=== PATIENT | male | born 1940 | race Hispanic/Latino ===

== ENCOUNTER 2018-02-17 06:35 | Day surgery (SDC) | payer MEDICARE, OTHER ==
[~2018-02-17 06:35] MED LIST: ANCEF/STERILE WATER 2 GM/20 ML IV NR
--- NOTE | 2018-02-17 07:24 | Anesthesia Day of Surgery ---
Anesthesia Day of Surgery - Day of Surgery Patient Examined: Yes Patient H&P Reviewed: Yes Patient is NPO: Yes
[2018-02-17] MEDS ORDERED: NACL BACTERIOSTATIC INFILTRATI ONE (07:56)
[2018-02-17] MEDS ORDERED: VERSED IV NR (08:00)
[2018-02-17] MEDS ORDERED: LACTATED RINGERS 1,000 ML IV SCH (08:00)
[2018-02-17] MEDS ORDERED: NACL 0.9% 1000 ML 1,000 ML ONE (08:15)
[2018-02-17] MEDS ORDERED: NACL 0.9% 1000 ML 1,000 ML IV SCH (08:15)
--- NOTE | 2018-02-17 08:29 | Anesthesia Consultation ---
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
[2018-02-17] MEDS ORDERED: DIPRIVAN 10 MG/ML IV ONE (09:32)
[2018-02-17] MEDS ORDERED: SUBLIMAZE ONE (09:49)
[2018-02-17] MEDS ORDERED: ePHEDrine SULFATE ONE (09:57)
--- NOTE | 2018-02-17 10:14 | Short Stay Summary ---
Short Stay Documentation Date of service: 02/17/18 - History H&P: obtained from office - Allergies and Medications Current Medications: Allergies No Known Allergies Allergy (Verified 02/07/18 17:38) Home Medications Medication Instructions Recorded Confirmed Last Taken Type Carvedilol [Coreg] 6.25 mg PO BID 02/08/18 02/08/18 02/17/18 05:55 History Cholecalciferol (Vitamin D3) 5,000 unit PO QWEEK 02/08/18 02/08/18 02/13/18 History [Vitamin D3] Clopidogrel Bisulfate [Plavix] 75 mg PO DAILY 02/08/18 02/17/18 02/05/18 History Gabapentin [Neurontin] 300 mg PO TID 02/08/18 02/08/18 02/17/18 05:55 History Oxycodone HCl/Acetaminophen 1 each PO Q6HR PRN 02/08/18 02/08/18 02/17/18 05:55 History [Percocet 10/325 mg] Simvastatin [Zocor TAB] 20 mg PO QHS 02/08/18 02/08/18 02/16/18 History Tamsulosin [Flomax] 0.4 mg PO QDAY 02/08/18 02/08/18 02/16/18 History metFORMIN [Glucophage] 500 mg PO BID 02/08/18 02/08/18 02/16/18 History Active Medications Cefazolin Sodium (Ancef/Sterile Water 2 Gm/20 Ml) 2 gm IV PREOP NR Stop: 02/17/18 21:00 Hydromorphone HCl (Dilaudid) 0.5 mg IV Q10MIN PRN PRN Reason: Pain , Severe (7-10) Stop: 02/17/18 13:00 Sodium Chloride (Nacl 0.9% 1000 Ml) 1,000 mls @ 100 mls/hr IV DIRECT JOSEF Stop: 02/17/18 23:59 Midazolam HCl (Versed) 2 mg IV PREOP NR Stop: 02/17/18 23:59 - Brief post op/procedure progress note Date of procedure: 02/17/18 Pre-op diagnosis: left renal stone Post-op diagnosis: same Procedure: eswl Anesthesia: GETA Surgeon: MARYLOU LLAMAS Estimated blood loss: none Pathology: none Condition: stable - Hospital course Hospital course: strainer/post op info on chart/pain mgmt per Dr. Can - Disposition Condition at discharge: Stable Disposition: DC-01 TO HOME OR SELFCARE Short Stay Discharge Plan Follow up with: DARYN CAN MD [Primary Care Provider] - 7 Days
[2018-02-17] MEDS: DILAUDID IV PRN ×2 (10:24→10:34)
--- NOTE | 2018-02-17 10:48 | Operative Report ---
PREOPERATIVE DIAGNOSIS: Left renal stone, 8 mm. POSTOPERATIVE DIAGNOSIS: Left renal stone, 8 mm. PROCEDURE PERFORMED: Extracorporal shock wave lithotripsy. SURGEON: Pj Shepherd MD. ANESTHESIA: General. ESTIMATED BLOOD LOSS: Minimal. FLUIDS: Crystalloid. COMPLICATIONS: No complications. INDICATIONS: This patient is a 77-year-old gentleman known to my service. History of stones in the past, chronic pain management from a injury has been per Dr. Paco Hernandes. Also has a history of peripheral vascular disease, on Plavix. Discussed options, he agreed to proceed with surgical intervention. DESCRIPTION OF PROCEDURE: The patient was taken to the operative suite. After adequate general anesthesia, is placed in a supine position. A stone was localized in 2 planes using fluoroscopy. Extracorporal shock wave lithotripsy was administered with a maximum kV of 5 and 2500 shocks. Adequate fragmentation could be appreciated. The patient tolerated the procedure well, extubated, and taken to the recovery room. He will go home with a strainer. His pain management will be per Dr. Paco Hernandes. JOB# [id number] [facility]
[2018-02-17 12:57] VITALS: BP 149/77
--- NOTE | 2018-02-17 14:25 | Post Anesthesia Evaluation ---
- Post Anesthesia Evaluation Patient Participated: Yes Airway Patent: Yes Stable Respiratory Function: Yes Nausea/Vomiting: No Temp > 96.8F: Yes Pain Manageable: Yes Adequeate Hydration: Yes Anesthesia Complications: No
== END 2018-02-17 12:00 | disposition home or self-care (01) ==
LOC: OR 06:35
PROVIDERS: ATTEND Urology
DX: N20.0 Calculus of kidney (principal); E11.51 Type 2 diabetes mellitus with diabetic peripheral angiopathy without gangrene; I10 Essential (primary) hypertension; I69.951 Hemiplegia and hemiparesis following unspecified cerebrovascular disease affecting right dominant side; G47.30 Sleep apnea, unspecified; H91.90 Unspecified hearing loss, unspecified ear; Z87.891 Personal history of nicotine dependence; Z79.899 Other long term (current) drug therapy; Z85.828 Personal history of other malignant neoplasm of skin
CPT/HCPCS: 50590; 82962; J0690; J1170; J2704; J3010; J7030; J2250; J7120

== ENCOUNTER 2020-05-17 08:59 | Day surgery (SDC) | payer MEDICARE, OTHER ==
[~2020-05-17 08:59] MED LIST changes: -ANCEF/STERILE WATER 2 GM/20 ML IV NR; +SODIUM CHLORIDE 0.9% 1000 ML 1,000 ML IV SCH
--- NOTE | 2020-05-17 09:37 | Anesthesia Consultation ---
Anesthesia Consult and Med Hx Date of service: 05/17/20 - Airway Anesthetic Teeth Evaluation: Dentures (upper), Partials (lower) ROM Head & Neck: Adequate Mental/Hyoid Distance: Adequate Mallampati Class: Class III Intubation Access Assessment: Possibly Difficult - Pulmonary Exam CTA: Yes - Cardiac Exam Cardiac Exam: RRR - Pre-Operative Health Status ASA Pre-Surgery Classification: ASA3 Proposed Anesthetic Plan: MAC - Pulmonary Hx Smoking: Yes (quit 1997) Hx Respiratory Symptoms: No Hx Sleep Apnea: Yes - Cardiovascular System Hx Hypertension: Yes (took antihypertensives this morning) Hx Coronary Artery Disease: Yes Hx Heart Attack/AMI: No Hx Percutaneous Transluminal Coronary Angioplasty (PTCA): No Hx Cardia Arrhythmia: No Hx Pacemaker: No Hx Internal Defibrillator: No Hx Peripheral Vascular Disease: Yes (last dose plavix 05/15/20) - Central Nervous System 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
--- NOTE | 2020-05-17 09:38 | Anesthesia Day of Surgery ---
Anesthesia Day of Surgery - Day of Surgery Patient Examined: Yes Patient H&P Reviewed: Yes Patient is NPO: Yes Beta Blockers: Yes (coreg today AM)
[2020-05-17] MEDS ORDERED: propofoL 200 MG/20 ML VIAL IV ONE ×2 (09:57→09:58)
--- NOTE | 2020-05-17 10:06 | History and Physical Report ---
HISTORY OF PRESENT ILLNESS: The patient is an 79-year-old white male with an underlying history of diabetes mellitus type 2, hypertension and a history of a CVA with very minor residual effect. He does have some weakness on the right leg. He has had a history of skin cancer in the past. Lately, he has been having abdominal pain with some bloating and has come for further assessment. His last colonoscopy was more than 15 years ago. Because of his abdominal pain, also he has been advised to have an EGD as well as a colonoscopy done to see if he has any associated peptic ulcer disease or any colon pathology. ALLERGIES: He has no known allergies. SOCIAL HISTORY: Denies history of smoking, rarely drinks alcohol. He has had his flu shots. No cardiac issues. MEDICATIONS: His medications include carvedilol, simvastatin, TriCor. PHYSICAL EXAMINATION: VITAL SIGNS: On exam, his temperature is 97.7, blood pressure is 167/80, pulse 67, height is 5 feet 9 inches, weight is 214. HEENT: Shows no JVD. LUNGS: Clear to auscultation. CARDIOVASCULAR: Normal. ABDOMEN: Soft with some mid abdominal tenderness. Bowel sounds present. No pedal edema. NEUROLOGIC: He is alert and oriented. ASSESSMENT: Abdominal pain, colitis, possible peptic ulcer disease, diabetes mellitus, hypertension, history of CVA, which is with minor residual effect. PLAN: Plan is to do an EGD and a colonoscopy at [facility] on 05/17/2020. JOB# [id number] [facility]
--- NOTE | 2020-05-17 10:46 | Procedure Note ---
Date of procedure: 05/17/20 Pre-op diagnosis: Abdominal Pain Post-op diagnosis: other (Mild to Moderate Erosive Esophagitis/ Gastritis/ Duodenitis/ No colon Polyps noted/ Few,Left Colon Diverticuli/ R/O Microscopic Colitis/ R/O Ileitis/ Minor,Internal Hemorrhoid) Procedure: EGd with Biopsy and Colonoscopy with Biopsy Anesthesia: YUSUF Surgeon: OLYA MURRAY Estimated blood loss: minimal Pathology: list Specimen disposition: to lab Condition: stable Disposition: same day (Treat with PPI and prn Bentyl. Encourage fiber intake avoid aspiruin and NSAID for 4 days and Plavix for 2 days. Follow up in 1 to 2 weeks ([phone]).)
[2020-05-17 11:22] VITALS: BP 158/74
--- NOTE | 2020-05-17 11:39 | Operative Report ---
PROCEDURE: Colonoscopy with biopsy. INDICATIONS: This is an 79-year-old white male with a prior history of diabetes mellitus, hypertension, history of a CVA that has left him with a few residual effect other than for weakness of the left leg. He has been complaining of abdominal pain. EGD done prior to the colonoscopy had shown presence of [id number] erosive esophagitis and gastritis and duodenitis, but no peptic ulcer disease. Colonoscopy was done to make sure there was not any significant lower GI pathology present. His last colonoscopy was more than 15 years ago. DESCRIPTION OF PROCEDURE: Procedure was done after getting informed consent with MAC anesthesia. Initial rectal exam was unremarkable. Instrument was passed through the rectum onto the cecum, which was identified with the ileocecal valve and the appendiceal orifice. The terminal ileum was intubated, showed normal mucosa. The cecum, ascending colon, transverse colon, descending colon showed normal mucosa. There were a few left colon diverticula noted. Random biopsies were done to rule out for possible microscopic colitis with minimal bleeding. There were no colon polyps noted and the rectum showed minor internal hemorrhoid on the retroverted view. ASSESSMENT: Abdominal pain, rule out microscopic colitis, rule out ileitis. Few left colon diverticula, minor internal hemorrhoid. No colon polyps noted. PLAN: To treat the patient with p.r.n. dose of Bentyl, treat the patient with PPI because of the EGD findings of esophagitis, gastritis. Encourage the patient to take fiber supplements, avoid aspirin and aspirin-related products and have the patient follow up in the office in 1-2 weeks' time. Further treatment adjustment will be according to the biopsy findings with the patient as persistence of abdominal pain. A CT scan of the abdomen and pelvis may be done for further assessment. Thank you for the kind referral. The procedure was done in the GI lab with assistance of the GI lab team, which included CHAVA Webster, lara Wiley and with assistance of anesthesia. JOB# [id number] [facility]
--- NOTE | 2020-05-17 13:47 | Operative Report ---
INDICATIONS: This is an 79-year-old white male who has been complaining of abdominal pain and discomfort. EGD was done to make sure there was any significant upper GI pathology present that would account for the patient's abdominal pain. The procedure was done after getting informed consent with MAC anesthesia. Instrument was passed through the hypopharynx into the esophagus, which showed [id number] erosive esophagitis. The stomach showed gastritis. The pylorus was patent. The duodenum in the first and second portion appeared normal except for some mild duodenitis in the bulb. There was no peptic ulcer disease noted. No additional pathology was noted within the gastric lumen in the retroverted view. Biopsy was done from the gastric antrum, gastric body and angular incisura to rule out for H. pylori and atrophic gastritis. Additional biopsy was done from the distal esophagus to rule out for erosive esophagitis. ASSESSMENT: Abdominal pain, mild to moderate erosive esophagitis, gastritis, duodenitis. No peptic ulcer disease noted. PLAN: To treat the patient with PPI, also p.r.n. dose of Bentyl for abdominal pain and to do a colonoscopy for further assessment. The patient will be asked to avoid aspirin and aspirin-related products for the next few days and to follow up in the office in 1-2 weeks' time. Otherwise, resume home medication. Thank you for the kind referral. The procedure was done in the GI lab with assistance of the GI lab team, which included CHAVA Webster, lara Wiley and with assistance of anesthesia. JOB# [id number] [facility]
== END 2020-05-17 12:05 | disposition home or self-care (01) ==
LOC: GIO 08:59
DX: R10.9 Unspecified abdominal pain (principal); K20.9 Esophagitis, unspecified; K57.30 Diverticulosis of large intestine without perforation or abscess without bleeding; K64.8 Other hemorrhoids; K29.70 Gastritis, unspecified, without bleeding; K29.80 Duodenitis without bleeding; I10 Essential (primary) hypertension; K63.89 Other specified diseases of intestine; K31.89 Other diseases of stomach and duodenum; I25.10 Atherosclerotic heart disease of native coronary artery without angina pectoris; E11.51 Type 2 diabetes mellitus with diabetic peripheral angiopathy without gangrene; I73.9 Peripheral vascular disease, unspecified; G47.30 Sleep apnea, unspecified; E66.9 Obesity, unspecified; M19.90 Unspecified osteoarthritis, unspecified site; Z79.84 Long term (current) use of oral hypoglycemic drugs; Z68.31 Body mass index [BMI] 31.0-31.9, adult; Z87.891 Personal history of nicotine dependence; Z79.899 Other long term (current) drug therapy; Z87.440 Personal history of urinary (tract) infections; Z87.442 Personal history of urinary calculi; Z85.828 Personal history of other malignant neoplasm of skin; Z86.2 Personal history of diseases of the blood and blood-forming organs and certain disorders involving the immune mechanism; Z86.73 Personal history of transient ischemic attack (TIA), and cerebral infarction without residual deficits
CPT/HCPCS: 43239; 45380; 82962; 88305; 88342; J2704; J7030; 88312

== ENCOUNTER 2020-05-30 10:54 | Outpatient (CLI) | payer MEDICARE, OTHER ==
--- NOTE | 2020-05-30 13:33 | Cat Scan Report ---
CT PELVIS WITHOUT CONTRAST HISTORY: Bilateral hip pain TECHNIQUE: Helical CT with sagittal and coronal reformatted images without contrast. All CT scans at this location are performed using CT dose reduction for ALARA by means of automated exposure control. COMPARISON: None. FINDINGS: Borderline to mild osteopenia is suspected. No evidence for pelvic fracture, diastasis or bone lesion . Articulation at both hips is anatomic. There are minimal osteoarthritic changes at both hips. No ev idence for joint effusion or osteonecrosis. There are mild symmetric osteoarthritic changes of both SI joints. Moderate degenerative changes in t he lower lumbar spine. Scattered diverticula are noted in the sigmoid colon. The remaining bowel loops are unremarkable. The bladder, distal ureters and prostate gland are within normal limits. There are moderate atherosclero tic plaques in the distal aorta and common iliac arteries. Small left inguinal hernia containing fat is noted. IMPRESSION: No acute abnormality is appreciated. Mild osteopenia. 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 Mild sigmoid diverticulosis. Signer Name: Eusebio Archuleta Jr, MD Signed: 05/30/2020 1:28 PM Workstation Name: [id number]
== END 2020-05-30 10:55 | disposition home or self-care (01) ==
LOC: CT 10:54
PROVIDERS: ATTEND Internal Medicine
DX: M16.11 Unilateral primary osteoarthritis, right hip (principal); M16.12 Unilateral primary osteoarthritis, left hip; M46.1 Sacroiliitis, not elsewhere classified; M47.816 Spondylosis without myelopathy or radiculopathy, lumbar region; I25.10 Atherosclerotic heart disease of native coronary artery without angina pectoris; K57.30 Diverticulosis of large intestine without perforation or abscess without bleeding
CPT/HCPCS: 72192